=== PATIENT | female | born 1990 | race Caucasian/White ===

== ENCOUNTER 2018-06-04 22:03 | Emergency (ER) | payer MEDICAID, OTHER ==
[~2018-06-04] VITALS: Ht 170.2 cm; Wt 64.0 kg
[2018-06-05 01:07] LABS: CLARITY URINE CLEAR (CLEAR); COLOR URINE YELLOW (YELLOW); KETONES URINE 1+ (NEGATIVE); LEUKOCYTE ESTERASE URINE NEGATIVE (NEGATIVE); NITRITE URINE NEGATIVE (NEGATIVE); OCCULT BLOOD URINE NEGATIVE (NEGATIVE); PROTEIN URINE NEGATIVE (NEGATIVE); SPECIFIC GRAVITY URINE 1.013 (1.005-1.030); UROBILINOGEN URINE 0.2 E.U./dL (0.2-1.0)
[2018-06-05] MEDS ORDERED: ACETAMINOPHEN 325MG TABLET PO SCH (01:43)
[2018-06-05 01:57] LABS: BASOPHILS % 0.3 % (0.0-2.0); HEMATOCRIT. 37.9 % (36.0-48.0); HEMOGLOBIN. 12.9 g/dL (12.0-16.0); LYMPHOCYTES % 20.3 % (20.0-50.0); MEAN CORPUSCULAR HEMOGLOBIN 30.4 pg (28.0-32.0); MEAN PLATELET VOLUME 9.3 fl (7.4-10.4); MONOCYTES % 4.6 % (2.0-8.0); NEUTROPHILS % 73.8 % (40.0-76.0); PLATELET 179 x1000/uL (130-400); RED BLOOD CELL COUNT 4.26 mill/uL (4.2-5.4); RED CELL DISTRIBUTION WIDTH 13.1 % (11.6-14.6)
[2018-06-05 02:00] LABS: CHLORIDE 104 mEq/L (98-107)
[2018-06-05 02:23] LABS: B-HCG QUANTITATIVE 38892 mIU/mL (<3)
[2018-06-05 05:10] VITALS: BP 110/63
== END 2018-06-05 05:10 | disposition home or self-care (01) ==
LOC: ER 22:03
DX: O26.892 Other specified pregnancy related conditions, second trimester (principal); R10.30 Lower abdominal pain, unspecified; Z3A.19 19 weeks gestation of pregnancy
CPT/HCPCS: 36415; 76815; 80053; 81003; 84702; 85025; 86850; 86900; 86901; 87210; 99285; Z7610

== ENCOUNTER 2018-10-02 01:15 | Observation (INO) | payer MEDICAID ==
[~2018-10-02] VITALS: Ht 170.2 cm; Wt 71.7 kg
[~2018-10-02 01:15] MED LIST: FERR-71 PO; PNV1TABL50 PO
[2018-10-02] MEDS ORDERED: TERBUTALINE SULFATE 1MG/ML VIAL SUBCUT PRN (02:00)
[2018-10-02] MEDS ORDERED: LACTATED RINGERS 1,000 ML IV SCH (02:00)
== END 2018-10-02 03:50 | disposition home or self-care (01) ==
LOC: 8 EST LDRP 01:15
PROVIDERS: ADMIT Obstetrics & Gynecology; ATTEND Obstetrics & Gynecology
DX: O62.9 Abnormality of forces of labor, unspecified (principal); Z3A.36 36 weeks gestation of pregnancy
CPT/HCPCS: 96372; 99281; G0378; J3105

== ENCOUNTER 2018-10-04 23:25 | Inpatient (IN) | payer MEDICAID ==
[~2018-10-04] VITALS: Ht 170.2 cm; Wt 71.7 kg
[2018-10-04] MEDS ORDERED: DEXT 5%/LR + PITOCIN 20UNITS/L 1,000 ML IV SCH (23:55)
[2018-10-04] MEDS ORDERED: LACTATED RINGERS 1,000 ML IV SCH (23:55)
[2018-10-05] MEDS ORDERED: METHYLERGONOVINE MALEATE 0.2 MG/ML IM PRN
[2018-10-05] MEDS ORDERED: LIDOCAINE HCL 1% 20ML VIAL (Pyxis) INJ INFIL SCH
[2018-10-05] MEDS ORDERED: BUTORPHANOL TARTRATE 2 MG/ML VIAL IV PRN
[2018-10-05] MEDS ORDERED: NALOXONE HCL 0.4 MG/ML 1ML VIAL IM PRN
[2018-10-05 01:37] LABS: BASOPHILS % 0.6 % (0.0-2.0); EOSINOPHILS % 0.8 % (0.0-5.0); HEMATOCRIT. 43.2 % (36.0-48.0); HEMOGLOBIN. 14.9 g/dL (12.0-16.0); LYMPHOCYTES % 16.2 % (20.0-50.0); MEAN CORPUSCULAR HEMOGLOBIN 31.5 pg (28.0-32.0); MEAN CORPUSCULAR VOLUME 91.1 fL (81.0-99.0); MONOCYTES % 4.5 % (2.0-8.0); NEUTROPHILS % 77.9 % (40.0-76.0); PLATELET 202 x1000/uL (130-400); RED BLOOD CELL COUNT 4.74 mill/uL (4.2-5.4); RED CELL DISTRIBUTION WIDTH 12.8 % (11.6-14.6)
[2018-10-05 01:44] LABS: INR 0.9
[2018-10-05 02:12] LABS: CLARITY URINE CLOUDY (CLEAR); COLOR URINE DARK YELLOW (YELLOW); KETONES URINE TRACE (NEGATIVE); LEUKOCYTE ESTERASE URINE NEGATIVE (NEGATIVE); NITRITE URINE NEGATIVE (NEGATIVE); OCCULT BLOOD URINE TRACE (NEGATIVE); PROTEIN URINE 4+ (NEGATIVE); SPECIFIC GRAVITY URINE 1.036 (1.005-1.030)
[2018-10-05] MEDS ORDERED: DEXT 5%/LR + PITOCIN 20UNITS/L 1,000 ML IV SCH (02:15)
[2018-10-05] MEDS ORDERED: HEMORRHOIDAL SUPP PR PRN (02:15)
[2018-10-05] MEDS ORDERED: BENZOCAINE/LANOLIN/ALOE VERA SPRAY TOP PRN (02:15)
[2018-10-05] MEDS ORDERED: LANOLIN OINT 0.25 GM TUBE TOP PRN (02:15)
[2018-10-05] MEDS ORDERED: ACETAMINOPHEN WITH CODEINE 300/30MG TABLET PO PRN ×2 (02:15)
[2018-10-05] MEDS ORDERED: IBUPROFEN 400MG TABLET PO PRN (02:15)
[2018-10-05] MEDS ORDERED: DIPHENHYDRAMINE 25MG CAPSULE PO PRN (02:15)
[2018-10-05 03:25] VITALS: BP 137/83
[2018-10-05 04:00] VITALS: BP 137/83
[2018-10-05 04:17] LABS: *AMPHETAMINES SCREEN URINE NEGATIVE (NEGATIVE); *BARBITURATES SCREEN URINE NEGATIVE (NEGATIVE); *BENZODIAZEPINES SCREEN URINE NEGATIVE (NEGATIVE); *COCAINE SCREEN URINE NEGATIVE (NEGATIVE); METHADONE URINE SCREEN NEGATIVE (NEGATIVE)
[2018-10-05 04:18] LABS: CANNABINOID URINE SCREEN NEGATIVE (NEGATIVE); OPIATES URINE SCREEN NEGATIVE (NEGATIVE); PHENCYCLIDINE URINE SCREEN NEGATIVE (NEGATIVE)
[2018-10-05 04:30] VITALS: BP 140/83
[2018-10-05 05:01] LABS: HEPATITIS B SURFACE ANTIGEN NEGATIVE
[2018-10-05 08:45] VITALS: BP 135/73
[2018-10-05] MEDS: SIMETHICONE 80MG TABLET CHEW PO SCH ×4 (09:00→20:33)
[2018-10-05] MEDS: MAGNESIUM/ALUMINUM HYDROXIDE/SIMETHICONE 30ML UDC PO SCH ×4 (09:00→20:33)
[2018-10-05] MEDS: PRENATAL VIT/FE FUMARATE/FA TABLET PO SCH (09:00)
[2018-10-05 16:30] VITALS: BP 127/80
[2018-10-05 20:30] VITALS: BP 122/81
[2018-10-06 02:05] VITALS: BP 120/69
[2018-10-06] MEDS: MAGNESIUM/ALUMINUM HYDROXIDE/SIMETHICONE 30ML UDC PO SCH (07:30)
[2018-10-06 08:00] VITALS: BP 126/72
[2018-10-06] MEDS: SIMETHICONE 80MG TABLET CHEW PO SCH (08:00)
[2018-10-06 08:03] LABS: BASOPHILS % 0.6 % (0.0-2.0); EOSINOPHILS % 2.6 % (0.0-5.0); HEMATOCRIT. 30.8 % (36.0-48.0); HEMOGLOBIN. 10.7 g/dL (12.0-16.0); LYMPHOCYTES % 33.5 % (20.0-50.0); MEAN CORPUSCULAR HEMOGLOBIN 31.8 pg (28.0-32.0); MEAN CORPUSCULAR VOLUME 91.5 fL (81.0-99.0); MONOCYTES % 4.5 % (2.0-8.0); NEUTROPHILS % 58.8 % (40.0-76.0); PLATELET 150 x1000/uL (130-400); RED BLOOD CELL COUNT 3.36 mill/uL (4.2-5.4); RED CELL DISTRIBUTION WIDTH 12.8 % (11.6-14.6)
[2018-10-06] MEDS: PRENATAL VIT/FE FUMARATE/FA TABLET PO SCH (10:38)
== END 2018-10-06 16:00 | disposition home or self-care (01) | DRG 560 ==
LOC: OBSVTOIN 23:25 → 8 EST LDRP 23:25 → 8EST 10-05 03:20
PROVIDERS: ADMIT Obstetrics & Gynecology; ATTEND Obstetrics & Gynecology
PROC: 10E0XZZ Delivery of Products of Conception, External Approach (ICD-10-PCS; principal; 2018-10-05)
DX: O60.14X0 Preterm labor third trimester with preterm delivery third trimester, not applicable or unspecified (principal); Z37.0 Single live birth; Z3A.36 36 weeks gestation of pregnancy
CPT/HCPCS: 36415; 80305; 86592; 86703; 86762; 86850; 86900; 87340; 99281; G0378; J2210; J2590